=== PATIENT | female | born 1995 | race African-American/Black ===

== ENCOUNTER 2017-05-28 10:13 | Emergency (ER) | payer SELFPAY ==
[~2017-05-28] VITALS: Ht 157.5 cm; Wt 54.4 kg
[2017-05-28 10:15] VITALS: BP 116/55
[2017-05-28] MEDS ORDERED: PENICILLIN G BENZATHINE LA 1,200,000 UNIT/2 ML DISP.SYRIN. IM ONE (11:15)
[2017-05-28] MEDS ORDERED: IBUPROFEN 100 MG/5 ML ORAL.SUSP. PO ONE (11:15)
[2017-05-28] MEDS ORDERED: DEXAMETHASONE SOD PHOS 4 MG/ML VIAL PO ONE (11:15)
--- NOTE | 2017-05-28 11:19 | PHYS DOC ---
Past Medical History Past Medical History: No Pertinent History Past Surgical History: Alcohol Use: Occasionally Drug Use: None Adult General Chief Complaint Chief Complaint: SORE THROAT HPI HPI Patient is a 21 year old female presents to the emergency department stating that she's had a sore throat for the last 5 days. She states that she has been having increased difficulty with swallowing for the last 4 days. She states that she's been having some fever on and off. She denies any nausea vomiting. Review of Systems Review of Systems Constitutional: Denies fever or chills [] Eyes: Denies change in visual acuity, redness, or eye pain [] HENT: Denies nasal congestion C/o sore throat [] Respiratory: Denies cough or shortness of breath [] Cardiovascular: No additional information not addressed in HPI [] GI: Denies abdominal pain, nausea, vomiting, bloody stools or diarrhea [] : Denies dysuria or hematuria [] Musculoskeletal: Denies back pain or joint pain [] Integument: Denies rash or skin lesions [] Neurologic: Denies headache, focal weakness or sensory changes [] Endocrine: Denies polyuria or polydipsia [] Current Medications Current Medications Current Medications Medications (Trade) Dose Ordered Sig/Rubén Start Time Stop Time Status Last Admin Dose Admin Dexamethasone Sodium Phosphate (Decadron) 8 mg 1X ONCE 05/28/17 11:15 05/28/17 11:16 Ibuprofen (Children'S Motrin) 800 mg 1X ONCE 05/28/17 11:15 05/28/17 11:16 UNV Allergies Allergies Allergies Coded Allergies Type Severity Reaction Last Updated Verified No Known Drug Allergies 05/28/17 No Physical Exam Physical Exam Constitutional: Well developed, well nourished, no acute distress, non-toxic appearance. [] HENT: Normocephalic, atraumatic, bilateral external ears normal, oropharynx moist, no oral exudates, nose normal. Bilateral tympanic membranes appear to be normal. Throat is to be red with no erythematous no exudate noted. No uvula deviation was noted. However the tonsils do appear to be very enlarged. Eyes: PERRLA, EOMI, conjunctiva normal, no discharge. [] Neck: Normal range of motion, no tenderness, supple, no stridor. [] Cardiovascular:Heart rate regular rhythm, no murmur [] Lungs & Thorax: Bilateral breath sounds clear to auscultation [] Skin: Warm, dry, no erythema, no rash. [] Back: No tenderness Extremities: No tenderness, no cyanosis, no clubbing, ROM intact, no edema. [] Neurologic: Alert and oriented X 3, normal motor function, normal sensory function, no focal deficits noted. [] Psychologic: Affect normal, judgement normal, mood normal. [] Current Patient Data Vital Signs Vital Signs Date Time Temp Pulse Resp B/P (MAP) Pulse Ox O2 Delivery O2 Flow Rate FiO2 05/28/17 10:15 100.0 94 16 98 Room Air 100.0 EKG EKG [] Radiology/Procedures Radiology/Procedures [] Course & Med Decision Making Course & Med Decision Making Pertinent Labs and Imaging studies reviewed. (See chart for details) Patient was provided with ibuprofen and Decadron here in the emergency department. Rapid strep was positive. Patient has opted to have a penicillin injection here in the emergency department. She'll be provided with the injection she'll be discharged home in stable condition signs and symptoms to return back to emergency department as been provided. All questions and concerns have been answered at the patients bedside. Patient is requesting a work note. [] Dragon Disclaimer Dragon Disclaimer This electronic medical record was generated, in whole or in part, using a voice recognition dictation system. Departure Departure Impression: Primary Impression: Strep throat Disposition: 01 HOME, SELF-CARE Condition: STABLE Referrals: NO PCP (PCP) Patient Instructions: Strep Throat, [id number] Additional Instructions: Your rapid strep was positive. Therefore you have strep throat. You have opted to have a penicillin injection here in the emergency department. Your also provided with Reglan 10 help with the inflammation. Activity as tolerated. Tylenol or ibuprofen for pain and discomfort. Drink plenty of fluids such as water or apple juice will help with the sore throat. Warm salt water gargles. Follow-up the primary care physician Return to the emergency department first signs and symptoms of become worse. ELVIRA MUÑOZ APRN May 28, 2017 11:19
[2017-05-28] MEDS ORDERED: DEXA4TAB PO (11:39)
[2017-05-29 07:17] LABS: NEGATIVE OBC STREP NEG; POSITIVE OBC STREP POS
== END 2017-05-28 11:45 | disposition home or self-care (01) ==
LOC: ER 10:13
DX: J02.0 Streptococcal pharyngitis (principal)
CPT/HCPCS: 87880; 96372; 99283; J0561; J1100